=== PATIENT | male | born 1960 | race Caucasian/White ===

== ENCOUNTER → 2019-12-10 09:48 | Outpatient (CLI) | payer OTHER, SELFPAY ==
--- NOTE | 2019-12-10 | DI.MRI.S_ITS ---
PROCEDURE: MR KNEE RT WO/W CON INDICATIONS: Pain in right knee TECHNIQUE: Noncontrast sagittal PD fast spin echo and T2 fast spin echo with fat saturation, sagittal 3-D FLASH with fat saturation; coronal T1 spin echo and PD fast spin echo with fat saturation, and axial T1 spin echo and PD fast spin echo with fat saturation through the knee. Post-contrast axial, coronal, and sagittal T1 spin echo with fat saturation through the knee. COMPARISON: [facility], CR, XR KNEE 3VW RT, 04/25/2015, 8:13. FINDINGS: Image quality: Diagnostic. Significant susceptibility artifacts are noted. Menisci: Menisci are surgically absent. Cruciate ligaments: The cruciate ligaments are surgically absent. Medial structures: The medial collateral ligament appears mildly thickened with surrounding soft tissue edema suggestive of low-grade MCL sprain/partial thickness tear particularly near its femoral insertion. The posterior oblique ligament, semimembranosus tendon insertions, and oblique popliteal liagment, and meniscocapsular junction appear intact. Visualized portions of the pes anserinus tendons appear normal. No abnormal bursal fluid. Lateral structures: Proximal lateral collateral ligament sprain/partial thickness tear at its proximal insertion is also seen. The popliteus tendon appears normal; the popliteofibular ligament appears intact. The posterosuperior and anteroinferior popliteomeniscal fascicles appear intact. The arcuate and fabellofibular ligaments appear intact, around the lateral inferior geniculate artery. Iliotibial band appears normal. Anterior structures: The quadriceps and patellar tendons appear intact. Patellar alignment is normal. No femoral trochlear dysplasia or ventral trochlear prominence. No edema in the infrapatellar fat pad. Bones and cartilage: Patient is status post total knee arthroplasty with significant susceptibility artifacts. No gross marrow edema. No fracture or dislocation. No area of abnormal intraosseous enhancement. Joint space: There is physiologic knee joint fluid. No Sinclair's cyst. Normal appearing synovial plicae are incidentally noted. No suspicious soft tissue enhancement. IMPRESSION: 1. Post right total knee arthroplasty changes with susceptibility artifact. Anatomic right knee alignment. No evidence of acute fracture or dislocation. No gross marrow edema. No area of abnormal intraosseous enhancement. 2. Physiologic amount of joint fluid. No definite intra-articular loose body. 3. Suggestion of low to moderate grade sprain/partial thickness tear involving medial and lateral collateral ligaments near their femoral insertions. No full-thickness collateral ligament rupture. No area of abnormal soft tissue enhancement. 4. Menisci and cruciate ligaments are surgically absent. Dictated by: Demond Sampson M.D. on 12/10/2019 at 12:03 Approved by: Demond Sampson M.D. on 12/10/2019 at 17:05
== END ==
PROVIDERS: PCP Family Medicine; Referring Provider Family Medicine Geriatric Medicine; Visit Provider Family Medicine Geriatric Medicine
DX: M25.561 Pain in right knee (principal); Z96.651 Presence of right artificial knee joint
CPT/HCPCS: 73723; A9579

== ENCOUNTER 2024-12-18 00:52 | Emergency (ER) | payer OTHER, SELFPAY ==
[2024-12-18] VITALS (12 sets, daily range): BP systolic 141–191; BP diastolic 92–121; PULSE 79–100; RESP 7–24; TEMP 36.1; O2SAT 90–100; BMI 31.1
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
--- NOTE | 2024-12-18 00:10 | DI.CT.S_ITS ---
PROCEDURE: CT FACIAL BONES WO CON INDICATIONS: facial lac, forehead/nose, left lid/lacrimal region TECHNIQUE: Noncontrast 2.5 mm thick axial images acquired from the mandible through the frontal sinuses, with coronal and sagittal reformatting. For radiation dose reduction, the following was used: automated exposure control, adjustment of mA and/or kV according to patient size. COMPARISON: None. FINDINGS: Image quality: Diagnostic Bones: Displaced and comminuted nasal bone fracture. There are multiple adjacent soft tissue and skin surface densities. No displaced orbital wall fracture. Slight deviation of the nasal septum, with suspected acute component at the anterior aspect. No displaced mandible fracture. The pterygoid plates appear intact. Zygomatic arches appear intact. Sinuses and mastoids: No significant paranasal sinus opacity. Small left frontal osteoma. Soft tissues: Small superficial densities adjacent to the left eye. No significant retro bulbar hematoma. No enlarged lymph nodes by size criteria. Brain: Separately dictated IMPRESSION: Comminuted nasal bone fracture also involving the anterior portion of the bony nasal septum. Adjacent soft tissue swelling and small soft tissue densities are present, likely representing small foreign bodies/debris. This extends to left periorbital region. No displaced orbital wall fracture identified. Dictated by: Stiven Casillas M.D. on 12/18/2024 at 0:55 Approved by: Stiven Casillas M.D. on 12/18/2024 at 0:58
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
--- NOTE | 2024-12-18 00:23 | EKG_ITS ---
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
--- NOTE | 2024-12-18 00:53 | PC.NURSE ---
pt dozing in room with O2 sats dropping to 89-92% pt placed on O2 @ 2L per NC
[2024-12-18] MEDS: PROPARACAINE 0.5% OPHTH SOL 1 DROPS EYE-BOTH (00:55)
[2024-12-18] MEDS: FLUORESCEIN 1 MG STRIP EYE-BOTH (00:56)
[2024-12-18 00:59] LABS: Add Manual Diff / Slide Review NO; Basophils Absolute Auto 0 /uL (0-100); Basophils Percent Auto 0.3 % (0-2); Eosinophils Absolute Auto 100 /uL (0-450); Eosinophils Percent Auto 1.2 % (2-4); Hematocrit 37.7 % (41-53); Hemoglobin 12.9 g/dL (13.5-17.5); Lymphocytes Absolute Auto 700 /uL (1100-4500); Lymphocytes Percent Auto 6.9 % (25-40); Mean Corpuscular HGB Conc 34.3 % (30-36); Mean Corpuscular Hemoglobin 30.9 PG (26-34); Mean Corpuscular Volume 90.3 fL (80-100); Monocytes Absolute Auto 400 /uL (0-900); Monocytes Percent Auto 4.1 % (3-14); Neutrophils Absolute Auto 9200 /uL (1500-7000); Neutrophils Percent Auto 87.5 % (50-75); Platelet Count 218 X10^3/uL (150-400); Red Blood Cell Count 4.17 X10^6/uL (4.5-5.9); Red Cell Distribution Width 13.1 % (11.6-14.8); White Blood Cell Count 10.5 X10^3/uL (4.5-11.0)
[2024-12-18 01:08] LABS: INR 1.2 (0.9-1.3); Prothrombin Time 13.3 SECONDS (9.4-12.5)
[2024-12-18 01:11] LABS: Alanine Aminotransferase 54 IU/L (<50); Albumin 4.2 g/dL (3.5-5.0); Albumin Globulin Ratio 1.5 (1.0-2.8); Alkaline Phosphatase 78 U/L (38-126); Aspartate Aminotransferase 77 IU/L (17-59); BUN Creatinine Ratio 19.2 (6-22); Bilirubin Total 0.7 mg/dL (0.2-1.3); Blood Urea Nitrogen 14 mg/dL (9-20); Calcium 8.3 mg/dL (8.4-10.2); Carbon Dioxide 28 mmol/L (22-32); Chloride 103 mmol/L (98-107); Estimated Glomerular Filt Rate > 60 mL/min (>60); Ethanol (ETOH) < 10 mg/dL (<10); Globulin 2.8 g/dL (1.7-4.1); Glucose 118 mg/dL (70-99); HEMOLYSIS < 15 (0-50); Lactate (Lactic Acid) 1.1 mmol/L (0.7-2.1); Lipase 79 U/L (23-300); PTT Partial Thromboplastin Tim 26 SECONDS (25.1-36.5); Potassium 4.1 mmol/L (3.4-5.1); Sodium 138 mmol/L (137-145)
--- NOTE | 2024-12-18 02:30 | PC.NURSE ---
c-collar removed per Dr Hatch
[2024-12-18] MEDS: CEFAZOLIN 2 GM/100 ML PREMIX 100 ML IV (02:33)
[2024-12-18] MEDS: TET,DIPH,PERTUSS(ACELL),VAC/PF 0.5 ML SYRINGE IM (02:34)
--- NOTE | 2024-12-18 02:41 | PC.NURSE ---
wound dressed with xeroform gauze with 2x2 placed on top and secured with paper tape
[2024-12-18] MEDS: HYDROMORPHONE 0.5 MG INJ IV (03:14)
== END 2024-12-18 03:28 | disposition short-term general hospital (02) ==
PROVIDERS: Emergency Provider Emergency Medicine; PCP Family Medicine
DX: S22.41XA Multiple fractures of ribs, right side, initial encounter for closed fracture (principal); S32.019A Unspecified fracture of first lumbar vertebra, initial encounter for closed fracture; S32.029A Unspecified fracture of second lumbar vertebra, initial encounter for closed fracture; S32.039A Unspecified fracture of third lumbar vertebra, initial encounter for closed fracture; S02.2XXA Fracture of nasal bones, initial encounter for closed fracture; S01.111A Laceration without foreign body of right eyelid and periocular area, initial encounter; S01.81XA Laceration without foreign body of other part of head, initial encounter; S01.21XA Laceration without foreign body of nose, initial encounter; H53.8 Other visual disturbances; V89.2XXA Person injured in unspecified motor-vehicle accident, traffic, initial encounter
CPT/HCPCS: 70450; 70486; 71045; 71275; 72125; 74177; 80053; 80320; 83605; 83690; 85025; 85610; 85730; 90471; 93005; 96365; 96375; 99285; 99291; 90715; G0390; J0690; J1171; Q9967